=== PATIENT | female | born 1970 | race Caucasian/White ===

== ENCOUNTER → 2017-06-05 | Outpatient (CLI) | payer BC ==
[~2017-06-05] MED LIST: ACIDOPHILUS PO; ALLEGRA 180MG180 MG PO; ASTELIN137 MCG/AC NS; CALCIUM1 CAP PO; LORTAB 5/500 501 TAB PO; METFORMIN500 MG PO; PATADAY 2.5 ML2.5 ML OP; PATADAY 2.5 ML2.5 ML OU; SYNTHROID0.075 MG PO; SYNTHROID0.2 MG/TAB PO; VERAMYST27.5 MCG/A NS; VITAMIN C500 MG PO
== END ==
LOC: MC.RAD 16:30
DX: Z12.31 Encounter for screening mammogram for malignant neoplasm of breast (principal)

== ENCOUNTER → 2018-08-16 | Outpatient (CLI) | payer BC | LOC: MC.RAD 14:20 | DX: Z12.31 Encounter for screening mammogram for malignant neoplasm of breast (principal) ==

== ENCOUNTER → 2019-01-30 | Outpatient (CLI) | payer BC ==
[2019-01-31 10:17] LABS: CREATININE, serum 0.7 mg/dL (0.52-1.25)
[2019-01-31 10:18] LABS: ALBUMIN 4.2 gm/dL (3.5-5.0); CALCIUM 9.3 mg/dL (8.4-10.2); POTASSIUM 3.9 mmol/L (3.4-5.0); TOTAL PROTEIN 7.6 gm/dL (6.4-8.2)
[2019-01-31 10:28] LABS: BILIRUBIN,TOTAL 0.5 mg/dL (0.0-1.0); CHOLESTEROL RISK RATIO 7.8
[2019-01-31 10:59] LABS: TSH w REFLEX 1.4 uIU/mL (0.465-4.680)
[2019-01-31 13:49] LABS: CREATININE OTHER SOURCE 61 mg/dL (()); URINE MICROALBUMIN <0.5 mg/dL (0.0-1.7)
== END ==
LOC: ZCOL.LAB 18:55 → COL.LAB 18:55
PROVIDERS: Physician Assistant
DX: E11.9 Type 2 diabetes mellitus without complications (principal); E03.9 Hypothyroidism, unspecified; E78.00 Pure hypercholesterolemia, unspecified

== ENCOUNTER 2019-11-03 08:03 | Emergency (ER) | payer OTHER, BC ==
[~2019-11-03] VITALS: Ht 165.1 cm; Wt 167.3 kg
[2019-11-03 08:34] VITALS: TEMP 98.4
[2019-11-03] MEDS ORDERED: FLEXERIL 1010 MG/TAB PO (10:58)
[2019-11-03] MEDS ORDERED: NORCO 325 MG-51 TAB PO (10:58)
[2019-11-03 11:37] VITALS: BP 111/84; PULSE 76
== END 2019-11-03 11:37 | disposition home or self-care (01) ==
LOC: COL.ER 08:03
DX: E11.9 Type 2 diabetes mellitus without complications (principal); S39.012A Strain of muscle, fascia and tendon of lower back, initial encounter; S29.012A Strain of muscle and tendon of back wall of thorax, initial encounter; Z79.84 Long term (current) use of oral hypoglycemic drugs; V43.52XA Car driver injured in collision with other type car in traffic accident, initial encounter; Z79.51 Long term (current) use of inhaled steroids
CPT/HCPCS: J1885

== ENCOUNTER → 2020-12-02 | Outpatient (CLI) | payer BC ==
[~2020-12-02] MED LIST changes: +FLEXERIL 1010 MG/TAB PO; +NORCO 325 MG-51 TAB PO
== END ==
LOC: MC.RAD 10-08 14:15
DX: Z12.31 Encounter for screening mammogram for malignant neoplasm of breast (principal)